=== PATIENT | female | born 1950 | race Caucasian/White ===

== ENCOUNTER 2020-05-24 07:11 | Outpatient (CLI) | payer MEDICARE, SELFPAY ==
[2020-05-24 08:27] LABS: Alanine Aminotransferase 29 U/L (4-35); Alkaline Phosphatase 108 U/L (38-126); Anion Gap 9 mmol/L (8-16); Aspartate Amino Transferase 31 U/L (14-36); Bilirubin,Total 0.7 mg/dL (0.2-1.3); Blood Urea Nitrogen 17 mg/dL (7-17); Calcium 9.1 mg/dL (8.4-10.2); Carbon Dioxide 32 mmol/L (22-30); Chloride 99 mmol/L (98-107); Cholesterol 170 mg/dL (0-200); Estimated Glomerular Filt Rate > 60; Glucose 273 mg/dL (65-105); HDL Direct 41 mg/dL; Potassium 3.8 mmol/L (3.4-5.0); Sodium 140 mmol/L (137-145); Triglycerides 310 mg/dL (<150)
[2020-05-24 08:37] LABS: LDL Cholesterol Direct 71 mg/dL
[2020-05-24 09:01] LABS: Creatinine Urine 53.4 mg/dL
[2020-05-24 09:05] LABS: MALB Creatinine Ratio 90.1 mg/g (0-30); Microalbumin Urine Random 48.1 mg/L (0-16.7)
[2020-05-25 04:13] LABS: Hemoglobin A1C 8.8 % (<5.7)
== END 2020-05-24 07:12 | disposition home or self-care (01) ==
PROVIDERS: PCP Internal Medicine; Visit Provider Nurse Practitioner
DX: E78.5 Hyperlipidemia, unspecified (principal); E11.40 Type 2 diabetes mellitus with diabetic neuropathy, unspecified; E11.65 Type 2 diabetes mellitus with hyperglycemia
CPT/HCPCS: 36415; 80053; 80061; 82043; 83036

== ENCOUNTER 2020-09-28 06:54 | Outpatient (CLI) | payer MEDICARE, SELFPAY ==
[2020-09-28 08:02] LABS: Alanine Aminotransferase 25 U/L (4-35); Albumin Level 4.1 g/dL (3.5-5.1); Alkaline Phosphatase 138 U/L (38-126); Anion Gap 8 mmol/L (8-16); Aspartate Amino Transferase 28 U/L (14-36); Bilirubin,Total 0.6 mg/dL (0.2-1.3); Blood Urea Nitrogen 14 mg/dL (7-17); Calcium 9.5 mg/dL (8.4-10.2); Carbon Dioxide 29 mmol/L (22-30); Chloride 98 mmol/L (98-107); Cholesterol 196 mg/dL (0-200); Estimated Glomerular Filt Rate > 60; Glucose 374 mg/dL (65-105); HDL Direct 49 mg/dL; Potassium 4.3 mmol/L (3.4-5.0); Sodium 135 mmol/L (137-145); Triglycerides 471 mg/dL (<150)
[2020-09-28 08:29] LABS: LDL Cholesterol Direct 67 mg/dL
== END 2020-09-28 06:55 | disposition home or self-care (01) ==
PROVIDERS: PCP Internal Medicine; Visit Provider Internal Medicine
DX: E11.65 Type 2 diabetes mellitus with hyperglycemia (principal); I10 Essential (primary) hypertension; E78.5 Hyperlipidemia, unspecified
CPT/HCPCS: 36415; 80053; 80061; 83036

== ENCOUNTER 2021-01-05 07:43 | Outpatient (CLI) | payer MEDICARE, SELFPAY ==
[2021-01-05 08:33] LABS: Alanine Aminotransferase 20 U/L (4-35); Alkaline Phosphatase 139 U/L (38-126); Anion Gap 6 mmol/L (8-16); Aspartate Amino Transferase 23 U/L (14-36); Bilirubin,Total 0.5 mg/dL (0.2-1.3); Blood Urea Nitrogen 14 mg/dL (7-17); Calcium 9.3 mg/dL (8.4-10.2); Carbon Dioxide 31 mmol/L (22-30); Chloride 100 mmol/L (98-107); Cholesterol 175 mg/dL (0-200); Estimated Glomerular Filt Rate > 60; Glucose 325 mg/dL (65-105); HDL Direct 50 mg/dL; Potassium 3.8 mmol/L (3.4-5.0); Sodium 137 mmol/L (137-145); Triglycerides 300 mg/dL (<150)
[2021-01-05 08:44] LABS: LDL Cholesterol Direct 69 mg/dL
[2021-01-05 08:48] LABS: Hemoglobin A1C 10.3 % (<5.7)
[2021-01-05 09:10] LABS: Creatinine Urine 42.1 mg/dL
[2021-01-05 09:14] LABS: Microalbumin Urine Random 29.9 mg/L (0-16.7)
== END 2021-01-05 07:44 | disposition home or self-care (01) ==
PROVIDERS: PCP Internal Medicine; Visit Provider Nurse Practitioner
DX: E11.65 Type 2 diabetes mellitus with hyperglycemia (principal); E78.5 Hyperlipidemia, unspecified
CPT/HCPCS: 36415; 80053; 80061; 82043; 83036

== ENCOUNTER 2021-01-12 08:10 | Outpatient (CLI) | payer MEDICARE, SELFPAY ==
[2021-01-12 13:53] LABS: Iron 40 ug/dL (37-170)
[2021-01-12 14:33] LABS: Percent Iron Saturation 11 % (20-50)
[2021-01-12 14:36] LABS: Ferritin 9.46 ng/mL (11.1-264)
== END 2021-01-12 08:11 | disposition home or self-care (01) ==
PROVIDERS: Nurse Practitioner; PCP Internal Medicine; Visit Provider Internal Medicine
DX: D50.9 Iron deficiency anemia, unspecified (principal)
CPT/HCPCS: 36415; 82728; 83540; 83550

== ENCOUNTER 2021-07-19 08:21 | Outpatient (CLI) | payer MEDICARE, SELFPAY ==
[2021-07-19 09:09] LABS: Alanine Aminotransferase 23 U/L (4-35); Albumin Level 4.2 g/dL (3.5-5.1); Alkaline Phosphatase 101 U/L (38-126); Anion Gap 10 mmol/L (8-16); Aspartate Amino Transferase 23 U/L (14-36); Bilirubin,Total 0.7 mg/dL (0.2-1.3); Blood Urea Nitrogen 18 mg/dL (7-17); Calcium 9.8 mg/dL (8.4-10.2); Carbon Dioxide 30 mmol/L (22-30); Chloride 98 mmol/L (98-107); Cholesterol 127 mg/dL (0-200); Estimated Glomerular Filt Rate > 60; Glucose 147 mg/dL (65-110); HDL Direct 35 mg/dL; Potassium 4.1 mmol/L (3.4-5.0); Sodium 138 mmol/L (137-145); Triglycerides 210 mg/dL (<150)
[2021-07-19 09:27] LABS: LDL Cholesterol Direct 51 mg/dL
[2021-07-19 12:15] LABS: Vitamin D 25 Hydroxy 45.1 ng/mL
== END 2021-07-19 08:22 | disposition home or self-care (01) ==
LOC: ANHLAB 08:25
PROVIDERS: PCP Internal Medicine; Visit Provider Internal Medicine
DX: E11.65 Type 2 diabetes mellitus with hyperglycemia (principal); I10 Essential (primary) hypertension; E55.9 Vitamin D deficiency, unspecified; E78.5 Hyperlipidemia, unspecified
CPT/HCPCS: 36415; 80053; 80061; 82306

== ENCOUNTER 2022-01-18 08:17 | Outpatient (CLI) | payer MEDICARE, SELFPAY ==
[2022-01-18 08:45] LABS: Alanine Aminotransferase 25 U/L (6-35); Albumin Level 3.8 g/dL (3.5-5.1); Alkaline Phosphatase 132 U/L (38-126); Anion Gap 3 mmol/L (8-16); Aspartate Amino Transferase 27 U/L (14-36); Bilirubin,Total 0.8 mg/dL (0.2-1.3); Blood Urea Nitrogen 13 mg/dL (7-17); Calcium 8.5 mg/dL (8.4-10.2); Carbon Dioxide 34 mmol/L (22-30); Chloride 99 mmol/L (98-107); Cholesterol 150 mg/dL (0-200); Estimated Glomerular Filt Rate > 60; Glucose 220 mg/dL (65-110); HDL Direct 39 mg/dL; Potassium 3.9 mmol/L (3.4-5.0); Sodium 136 mmol/L (137-145); Triglycerides 193 mg/dL (<150)
[2022-01-18 08:56] LABS: LDL Cholesterol Direct 60 mg/dL
[2022-01-18 09:06] LABS: Iron 68 ug/dL (37-170)
[2022-01-18 09:15] LABS: Percent Iron Saturation 20 % (20-50)
[2022-01-18 09:22] LABS: Vitamin D 25 Hydroxy 29.8 ng/mL
[2022-01-18 09:28] LABS: Hemoglobin A1C 9.7 % (<5.7)
== END 2022-01-18 08:18 | disposition home or self-care (01) ==
LOC: ANHLAB 08:21
PROVIDERS: PCP Internal Medicine; Visit Provider Nurse Practitioner
DX: E11.40 Type 2 diabetes mellitus with diabetic neuropathy, unspecified (principal); E55.9 Vitamin D deficiency, unspecified; E78.5 Hyperlipidemia, unspecified; E61.1 Iron deficiency
CPT/HCPCS: 36415; 80053; 80061; 82306; 83036; 83540; 83550

== ENCOUNTER 2022-07-05 15:07 | Outpatient (CLI) | payer MEDICARE, SELFPAY ==
--- NOTE | ~2022-07-05 | DEXA_ITS ---
Bone Density Report Name: ROHITH JO Age: 71 Sex: Female Ethnicity: White Date of : 1950 Indication: postmenopausal; screening for osteoporosis; Referring Provider: TRINY JOHNSON Study: Bone densitometry was performed. Exam Date: July 05, 2022 Accession number: [id number] Bone Density: Region BMD T-score Z-score Classification AP Spine(L1-L4) 1.112 0.6 2.7 Normal Femoral Neck (Left) 0.743 -1.0 0.9 Normal Total Hip (Left) 0.924 -0.1 1.4 Normal Femoral Neck (Right) 0.735 -1.0 0.8 Normal Total Hip (Right) 0.881 -0.5 1.0 Normal Total Hip Mean 0.903 -0.3 1.2 Normal World Health Organization criteria for BMD impression classify patients as: Normal (T-score at or above -1.0), Osteopenia (T-score between -1.0 and -2.5), or Osteoporosis (T-score at or below -2.5). 10-year Fracture Risk: FRAX not reported because: All T-scores for Spine Total, Hip Total, Femoral Neck at or above -1.0 Clinical Information Provided by Patient: Patient maximum height was 65 Menopause Age: 53 Drinks caffeinated beverages Onset of menses at age 14 Number of children 3 Impression: The patient has normal bone mass. Discussion: BONE DENSITY IS ABOVE THE MINIMUM DESIRABLE LEVEL AT ALL SKELETAL SITES TESTED. This patient?s bone mineral density is above the minimum desirable level (T-score -1.0 or better) at all sites measured. The patient should follow a healthful lifestyle (good nutrition with adequate calcium and vitamin D, and appropriate weight-bearing exercise). Follow-Up: Consider repeating this study in 5 years or sooner if there is some new clinical indication. Reported by: KALI on 07/05/2022 3:46:00 PM. Reviewed, dictated and finalized at location AAddie [facility]
--- NOTE | ~2022-07-05 | MM_ITS ---
EXAMINATION: MM screening [place]ley BI w trevon HISTORY: Screening mammogram TECHNIQUE: Craniocaudal and mediolateral oblique 3-D tomosynthesis images were obtained and synthetic 2-D images were generated. CAD analysis was submitted and interpreted. COMPARISON: No prior mammogram is available for comparison at this institution. BREAST PARENCHYMAL COMPOSITION: There are scattered areas of fibroglandular density. FINDINGS: There are scattered bilateral benign calcifications. There is no evidence of suspicious mas s, calcification, or architectural distortion to suggest malignancy in either breast. There has been no suspicious interval change. IMPRESSION: 1. No mammographic evidence of malignancy. 2. Recommend routine screening mammography in one year. BI-RADS Category 1: Negative Reviewed, dictated and finalized at location A. OPRACTIC DOCTOR
== END 2022-07-05 15:08 | disposition home or self-care (01) ==
PROVIDERS: PCP Internal Medicine; Visit Provider Nurse Practitioner
DX: Z12.31 Encounter for screening mammogram for malignant neoplasm of breast (principal); Z78.0 Asymptomatic menopausal state
CPT/HCPCS: 77063; 77067; 77080

== ENCOUNTER 2022-08-21 09:57 | Outpatient (CLI) | payer MEDICARE, SELFPAY ==
[2022-08-21 10:36] LABS: Basophils Percent Auto 0.5 % (0.2-1.2); Eosinophils Absolute Auto 0.1 K/mm3 (0-0.3); Eosinophils Percent Auto 1.8 % (0-4.4); Hematocrit 40.7 % (37.0-47.0); Hemoglobin 14.2 g/dL (12.0-15.0); Immature Granulocyte Absolute 0.02 K/mm3 (0.00-0.031); Immature Granulocyte Percent A 0.4 % (0-0.5); Lymphocytes Absolute Auto 1.34 K/mm3 (0.9-3.2); Lymphocytes Percent Auto 24.2 % (18.3-44.2); Mean Corpuscular HGB Conc 34.9 g/dl (32-36); Mean Corpuscular Hemoglobin 30.9 pg (26-34); Mean Corpuscular Volume 88.7 fl (80-100); Mean Platelet Volume 10.6 fl (7.4-10.4); Monocytes Absolute Auto 0.4 K/mm3 (0.1-0.6); Monocytes Percent Auto 6.3 % (2.6-8.5); Neutrophils Absolute Auto 3.7 K/mm3 (1.3-6.7); Neutrophils Percent Auto 66.8 % (45.5-73.1); Platelet Count Result 238 k/mm3 (150-375); Red Blood Count 4.59 M/mm3 (4.2-5.4); Red Cell Distribution Width 11.9 % (11.5-14.5); White Blood Count 5.5 K/mm3 (4.5-10.0)
[2022-08-21 10:39] LABS: Alanine Aminotransferase 33 U/L (6-35); Alkaline Phosphatase 128 U/L (38-126); Anion Gap 7 mmol/L (8-16); Aspartate Amino Transferase 29 U/L (14-36); Bilirubin,Total 0.8 mg/dL (0.2-1.3); Blood Urea Nitrogen 13 mg/dL (7-17); Calcium 8.9 mg/dL (8.4-10.2); Carbon Dioxide 32 mmol/L (22-30); Chloride 97 mmol/L (98-107); Cholesterol 144 mg/dL (0-200); Estimated Glomerular Filt Rate > 60; Glucose 296 mg/dL (65-110); HDL Direct 31 mg/dL; Potassium 3.3 mmol/L (3.4-5.0); Sodium 136 mmol/L (137-145); Triglycerides 284 mg/dL (<150)
[2022-08-21 10:40] LABS: Hemoglobin A1C 10.4 % (<5.7)
[2022-08-21 10:50] LABS: LDL Cholesterol Direct 60 mg/dL
[2022-08-21 11:02] LABS: Microalbumin Urine Random 116.4 mg/L (0-16.7)
[2022-08-21 11:06] LABS: Iron 71 ug/dL (37-170)
[2022-08-21 11:13] LABS: Percent Iron Saturation 23 % (20-50); Vitamin D 25 Hydroxy 31.4 ng/mL
[2022-08-21 11:14] LABS: Creatinine Urine 423.1 mg/dL; MALB Creatinine Ratio 27.5 mg/g (0-30)
== END 2022-08-21 09:58 | disposition home or self-care (01) ==
LOC: ANHLAB 10:05
PROVIDERS: PCP Internal Medicine; Visit Provider Nurse Practitioner
DX: E61.1 Iron deficiency (principal); E55.9 Vitamin D deficiency, unspecified; E11.65 Type 2 diabetes mellitus with hyperglycemia; E78.5 Hyperlipidemia, unspecified
CPT/HCPCS: 36415; 80053; 80061; 82043; 82306; 83036; 83540; 83550; 85025

== ENCOUNTER 2022-12-18 07:03 | Outpatient (CLI) | payer MEDICARE, SELFPAY ==
[2022-12-18 07:52] LABS: Anion Gap 1 mmol/L (8-16); Blood Urea Nitrogen 7 mg/dL (7-17); Calcium 8.4 mg/dL (8.4-10.2); Carbon Dioxide 33 mmol/L (22-30); Chloride 105 mmol/L (98-107); Estimated Glomerular Filt Rate > 60; Glucose 210 mg/dL (65-110); Sodium 139 mmol/L (137-145)
== END 2022-12-18 07:04 | disposition home or self-care (01) ==
LOC: ANHLAB 07:05
PROVIDERS: PCP Family Medicine; Visit Provider Nurse Practitioner Family
DX: E87.6 Hypokalemia (principal); I10 Essential (primary) hypertension
CPT/HCPCS: 36415; 80048

== ENCOUNTER 2023-07-03 07:53 | Outpatient (CLI) | payer MEDICARE, SELFPAY ==
[2023-07-03 09:14] LABS: Basophils Percent Auto 0.6 % (0.2-1.2); Eosinophils Absolute Auto 0.1 K/mm3 (0-0.3); Eosinophils Percent Auto 1.2 % (0-4.4); Hematocrit 44.6 % (37.0-47.0); Hemoglobin 14.9 g/dL (12.0-15.0); Immature Granulocyte Absolute 0.04 K/mm3 (0.00-0.031); Immature Granulocyte Percent A 0.6 % (0-0.5); Lymphocytes Absolute Auto 0.84 K/mm3 (0.9-3.2); Lymphocytes Percent Auto 12.4 % (18.3-44.2); Mean Corpuscular HGB Conc 33.4 g/dl (32-36); Mean Corpuscular Hemoglobin 29.6 pg (26-34); Mean Corpuscular Volume 88.7 fl (80-100); Mean Platelet Volume 10.9 fl (7.4-10.4); Monocytes Absolute Auto 0.3 K/mm3 (0.1-0.6); Neutrophils Absolute Auto 5.5 K/mm3 (1.3-6.7); Neutrophils Percent Auto 80.2 % (45.5-73.1); Platelet Count Result 239 k/mm3 (150-375); Red Blood Count 5.03 M/mm3 (4.2-5.4); Red Cell Distribution Width 12.3 % (11.5-14.5); White Blood Count 6.8 K/mm3 (4.5-10.0)
[2023-07-03 09:29] LABS: Alanine Aminotransferase 26 U/L (6-35); Albumin Level 4.1 g/dL (3.5-5.1); Alkaline Phosphatase 156 U/L (38-126); Anion Gap 6 mmol/L (8-16); Aspartate Amino Transferase 22 U/L (14-36); Bilirubin,Total 0.9 mg/dL (0.2-1.3); Blood Urea Nitrogen 12 mg/dL (7-17); Calcium 9.2 mg/dL (8.4-10.2); Carbon Dioxide 28 mmol/L (22-30); Chloride 104 mmol/L (98-107); Cholesterol 182 mg/dL (0-200); Estimated Glomerular Filt Rate > 60; Glucose 278 mg/dL (65-110); HDL Direct 46 mg/dL; Potassium 3.4 mmol/L (3.4-5.0); Sodium 138 mmol/L (137-145); Triglycerides 192 mg/dL (<150)
[2023-07-03 09:40] LABS: LDL Cholesterol Direct 94 mg/dL
[2023-07-03 09:55] LABS: Vitamin D 25 Hydroxy 25.6 ng/mL
[2023-07-03 15:17] LABS: Iron 97 ug/dL (37-170)
[2023-07-03 15:27] LABS: Percent Iron Saturation 29 % (20-50)
== END 2023-07-03 07:54 | disposition home or self-care (01) ==
PROVIDERS: PCP Nurse Practitioner Family; Visit Provider Nurse Practitioner Family
DX: E61.1 Iron deficiency (principal); I10 Essential (primary) hypertension; E78.5 Hyperlipidemia, unspecified; E55.9 Vitamin D deficiency, unspecified
CPT/HCPCS: 36415; 80053; 80061; 82306; 83540; 83550; 85025

== ENCOUNTER 2023-11-20 08:58 | Outpatient (CLI) | payer MEDICARE, SELFPAY ==
--- NOTE | ~2023-11-20 | MM_ITS ---
EXAMINATION: MM screening hadley BI w trevon HISTORY: Screening mammogram TECHNIQUE: Craniocaudal and mediolateral oblique 3-D tomosynthesis images were obtained and synthetic 2-D images were generated. CAD analysis was submitted and interpreted. COMPARISON: 07/15/2022 bilateral screening mammogram BREAST PARENCHYMAL COMPOSITION: There are scattered areas of fibroglandular density. FINDINGS: There is no evidence of suspicious mass, calcification, or architectural distortion to sugg est malignancy in either breast. There has been no suspicious interval change. IMPRESSION: 1. No mammographic evidence of malignancy. 2. Recommend routine screening mammography in one year. BI-RADS Category 1: Negative Reviewed, dictated and finalized at location A.
== END 2023-11-20 08:59 | disposition home or self-care (01) ==
PROVIDERS: PCP Nurse Practitioner Family; Visit Provider Nurse Practitioner Family
DX: Z12.31 Encounter for screening mammogram for malignant neoplasm of breast (principal)
CPT/HCPCS: 77063; 77067

== ENCOUNTER 2024-08-05 13:12 | Outpatient (RCR) | payer MEDICARE, SELFPAY | END 2024-10-27 08:59 | disposition home or self-care (01) | LOC: ANHDMC 13:12 | PROVIDERS: PCP Internal Medicine; Visit Provider Nurse Practitioner Family | DX: E11.65 Type 2 diabetes mellitus with hyperglycemia (principal); Z71.89 Other specified counseling | CPT/HCPCS: G0108 ==

== ENCOUNTER 2024-11-05 09:12 | Outpatient (CLI) | payer MEDICARE, SELFPAY ==
--- NOTE | ~2024-11-05 | US_ITS ---
EXAMINATION: US arterial ankle brachial ind DATE: 11/05/2024 09:50 INDICATION: Peripheral vascular disease, unspecified. TECHNIQUE: Segmental pressures and plethysmographic and Doppler waveforms of the brachial and lower e xtremity arteries were obtained. COMPARISON: None. FINDINGS: Right and left brachial artery pressures of 162 mm Hg and 172 mm Hg, respectively, are concordant (no rmal difference <= 30 mmHg). The right ankle-brachial index (MITALI) could not be measured due to inability to cuff occlude the arter ies (normal >= 0.9-1.0). The right great toe-brachial index (TBI) is 0.41 (normal >= 0.65). Arterial Doppler waveforms are biphasic at the ankle. The left MITALI could not be measured due to inability to cuff occlude the arteries. The left TBI is 0.4 4. Arterial Doppler waveforms are biphasic at the ankle. IMPRESSION: 1. Decreased TBIs and nondiagnostic ABIs, consistent with arterial occlusive disease. Reviewed, dictated and finalized at location B. IMPRESSION: 1. Decreased TBIs and nondiagnostic ABIs, consistent with arterial occlusive di sease.
--- OUTSIDE RECORDS SUMMARY | 2024-11-05 09:51 | XMS_ITS | Clinical Summary ---
Author Organization [facility] Address [address] [place] [address] Care Team Providers Care Turbine Mechanic Name Role Phone Unavailable Primary Care Provider Unavailabl e Social History Tobacco Use Types Packs/Day Years Used Date Smoking Tobacco: Never Assessed Comments Unknown Sex and Gender Information Value Date Recorded Sex Assigned at Not on file Legal Sex Female 8:05 PM CDT Gender Identity Not on file Sexual Orientation Not on file Plan of Treatment Health Maintenance Due Date Last Done Comments Colorectal Cancer Screening Colonoscopy (10 Years) 1950 Hepatitis C 10/24/1969 DTaP, Tdap and Td Vaccines ( 1 - Tdap) 10/24/1970 Mammogram Screening 1991 Zoster Vaccines (1 of 2) 10/24/2001 Dexa Scan (General) 10/24/2016 Pneumococcal Vaccine: 65+ Ye ars (1 of 1 - PCV) 10/24/2016 COVID-19 Vaccine (2023-2 5 season) 2024 Influenza Adult (#1) 2024 RSV Immunization or 60+ Years (1 - 1-dose 75+ series) 10/24/2026 Meningococcal B Vaccine Aged Out No l onger eligible based on patient's age to complete this topic Meningococcal Vaccine Aged Out No adeel hank eligible based on patient's age to complete this topic RSV Immunizations Under 20 Months Aged Out No longer eligible based on patient's age to complete this topic
--- OUTSIDE RECORDS SUMMARY | 2024-11-05 09:51 | XMS_ITS | CONTINUITY OF CARE DOCUMENT ---
Author Name andreia boswell Address Unknown Organization [facility] Address [address] [facility] [facility] [address] [place] [address] Phone [phone] Care Team Providers Care Mass Spectrometry Specialist Name Role Phone Armani REYES, Dotty Unavailable JACQUIE GALAN MD Unavailable [phone] INSURANCE PROVIDERS Payer name Policy type / Coverage type Allan red libertarian ID [facility] Other [id number]
== END 2024-11-05 09:13 | disposition home or self-care (01) ==
PROVIDERS: PCP Internal Medicine; Visit Provider Nurse Practitioner Family
DX: I73.9 Peripheral vascular disease, unspecified (principal)
CPT/HCPCS: 93922

== ENCOUNTER 2024-12-02 09:06 | Outpatient (CLI) | payer MEDICARE, SELFPAY ==
--- OUTSIDE RECORDS SUMMARY | 2024-12-02 09:45 | XMS_ITS | Clinical Summary ---
Author Organization [facility] Address [address] [place] [address] Care Team Providers Care Certified Master Locksmith Name Role Phone Unavailable Primary Care Provider [...] of 1 - PCV) 10/24/2016 COVID-19 Vaccine ( - 2023-2 5 season) 2024 RSV Immunization or 60+ Years (1 [...]
--- OUTSIDE RECORDS SUMMARY | 2024-12-02 09:45 | XMS_ITS | Referral Summary ---
Author Organization [facility] [address] Address [address] [place] [address] Care Team Providers Care Wire Tinner Name Role Phone BillieVidaldave SMITH Primary Care Provider [phone] Encounters Date Type Department Care Team Description 11/19/2024 9:45 AM CDT Office Visit [facility] at [address] [place] [address] Saleem Osborn MD Peripheral vascular disease, unspecified (Primary Dx); Mixed hyperlipidemia; Primary hypertension from Last 3 Months Allergies Active Allergy Reactions Criticality Noted Date Comments Hydrocodone Swelling,Vomiting Medium 11/19/2024 Medications HumaLOG 200 unit/mL (3 mL) pen for injection PLEASE SEE ATTACHED FOR DETAILED DIRECTIONS 5 Active TRESIBA 200 unit/mL (3 mL) pen for injection INJECT 45 UNIT SUBCUTANEOUSLY DAILY 5 Active amLODIPine (NORVASC) 10 mg tablet Take 1 tablet (10 mg total) by mouth daily 5 Active lisinopriL (PRINIVIL,ZEST RIL) 20 mg tablet Take 1 tablet (20 mg total) by mouth daily 5 Active atorvastatin (LIPITOR) 40 mg tablet Take 1 tablet (40 mg total) by mouth daily [address] (PROTONIX) 40 mg EC tablet Take 1 tablet (40 mg total) by mouth every morning 5 Active metoprolol (LOPRESSOR) 100 mg tablet Take 1 tablet (100 mg total) by mouth every 12 (twelve) hours 5 Active gabapentin (NEURONTIN) 100 mg capsule TAKE 1 CAPSULE BY MOUTH EVERYDAY AT BEDTIME 5 Active amoxicillin 500 mg capsule TAKE 1 CAPSULE BY MOUTH FOUR TIMES A DAY UNTIL FINISHED 5 Active metFORMIN XR (GLUCOPHAGE XR) 500 mg 24 hr tablet Take 2 tablets (1,000 mg total) by mouth 2 (two) times a day 5 Active Active Problems Problem Noted Date Diagnosed Date Peripheral vascular disease, unspecified 025 Assessment & Plan (11/19/2024 10:53 AM CDT): Clinically no evidence of PVD as she has a palpable left DP PT pulse right DP PT signal. MITALI testing from [facility] ABIs falsely elevated due to noncompressibility of vessels, likely has some inframalleolar or digit disease due to her diabetes. Symptoms likely due to neuropathy and and are issues that are musculoskeletal in origin. Can follow up with me as needed. 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 Gender Identity Not on file Sexual Orientation Not on file Last Filed Vital Signs Vital Sign Reading Time Taken Comments Blood Pressure 153/77 11/19/2024 10:07 AM CDT Pulse 59 11/19/2024 10:07 AM CDT Temperature - - Respiratory Rate - - Oxygen Saturation 99% 11/19/2024 10:07 AM CDT Inhaled Oxygen Concentration - - Weight 88.5 kg (195 lb) 11/19/2024 10:07 AM CDT Height 165.1 cm (5' 5 ) 11/19/2024 10:07 AM CDT Body Mass Index 32.45 11/19/2024 10:07 AM CDT Plan of Treatment Not on file Insurance HU[employer]NA MEDICARE HMO Care Teams Wire Tinner Relationship Specialty Start Date End Date Ed Wise DO [address] [id number] PCP - General Internal Medicine 11/10/24
--- OUTSIDE RECORDS SUMMARY | 2024-12-02 09:45 | XMS_ITS | CONTINUITY OF CARE DOCUMENT ---
Author Name andreia boswell Address Unknown Organization [facility] Address [address] [facility] [address] [place] [address] Phone [phone] Care Team Providers Care Boat Crew Deck Hand Name Role Phone Armani REYES, Dotty Unavailable JACQUIE GALAN MD Unavailable [phone] INSURANCE PROVIDERS Payer name Policy type / Coverage type Allan red republican ID [facility] Other [id number]
--- OUTSIDE RECORDS SUMMARY | 2024-12-02 09:45 | XMS_ITS | Clinical Summary ---
Author Organization [facility] [address] Address [address] [place] [phone] Care Team Providers Care Melt Superintendant Name Role Phone Ed Wise Primary Care Provider [phone] Allergies Active Allergy Reactions Criticality Noted Date [...] by mouth 2 (two) times a day Active Active Problems Problem Noted Date Diagnosed Date Peripheral vascular disease, unspecified 025 Assessment & Plan (11/19/2024 10:53 AM CDT): Clinically no evidence of PVD as she has a palpable left DP PT pulse right DP PT signal. MITALI testing from [facility] ABIs falsely elevated due to noncompressibility [...] (11/19/2024 10:53 AM CDT): Stable continue Lipitor Encounters Date Type Department Care Team Description 11/19/2024 9:45 AM CDT Office Visit [facility] at [address] [place] [phone] Saleem Osborn MD Peripheral vascular disease, unspecified (Primary Dx); Mixed hyperlipidemia; Primary hypertension from Last 3 Months Social History Tobacco Use Types Packs/Day Years Used Date Smoking Tobacco: Unknown Tobacco Cessation:Counseling Given: Not Answered Comments Unknown Sex and Gender Information Value Date Recorded Sex Assigned at Not on file 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 Gender Identity Not on file Sexual Orientation Not on file Obstetrics History Last Filed Vital Signs Vital Sign Reading [...] 11/19/2024 10:07 AM CDT Plan of Treatment Health Maintenance Due Date Last Done Comments Breast Cancer Screening-Mammogram 1950 Colon Cancer Screening-Colonoscopy 1950 Depression Screening 1950 Fall Risk Assessment 1950 Hepatitis C Screening 1950 Osteoporosis Screening-Bone Density Scan 1950 DTaP/Tdap/Td Vaccine (1 - Tdap) 10/24/1962 Hepatitis B Screening 10/24/1969 Zoster Vaccine (1 of 2) 10/24/2001 Well Visit 65+ 10/24/2016 Pneumococcal vaccine 65+ (2 of 2 - PPSV23) 05/27/2021 05/27/2020 Covid-19 Vaccine (8 2023-2 5 season) 2024 05/28/2024, 05/14/2023, 05/16/2022, Additional history exists Influenza Vaccine Completed 05/28/2024, , 05/16/2022, Additional history exists Insurance Care Teams Melt Superintendant Relationship Specialty Start Date End Date Ed Wise DO [address] [facility] [address] [place] [id number] PCP - General Internal Medicine 11/10/24
--- NOTE | 2024-12-02 10:00 | NEURO_ITS ---
Impression: #Known diabetic Complains of paresthesia of left lower extremity. ? 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 ? # Needle/EMG exam with neurogenic changes in lower extremity muscles, left more than right. ? # Clinical correlation recommended. Nerve Conduction Studies Anti Sensory Summary Table ?Stim Site NR Peak (ms) P-T Amp (?V) Site1 Site2 Delta-P (ms) Dist (cm) Jose Alberto (m/s) Left Sup Fibular Anti Sensory (Ant Lat Mall)??? NO RESPONSE 14 cm NR 14 cm Ant Lat Mall 16.0 Right Sup Fibular Anti Sensory (Ant Lat Mall)??? NO RESPONSE 14 cm NR 14 cm Ant Lat Mall 16.0 Left Sural Anti Sensory (Lat Mall)??? NO RESPONSE Calf NR Calf Lat Mall 16.0 Right Sural Anti Sensory (Lat Mall)??? NO RESPONSE Calf NR Calf Lat Mall 16.0 Motor Summary Table ?Stim Site NR Onset (ms) O-P Amp (mV) Site1 Site2 Delta-0 (ms) Dist (cm) Jose Alberto (m/s) Left Peroneal Motor (Vastus Med) Ankle ? 4.9 1.6 Popit Ankle 10.1 40.0 40 Popit ? 15.0 1.3 Right Peroneal Motor (Vastus Med) Ankle ? 4.2 2.3 Popit Ankle 9.9 42.0 42 Popit ? 14.1 2.2 Left Tibial Motor (Abd Alaniz Brev) Ankle ? 4.8 1.2 Knee Ankle 10.4 41.0 39 Knee ? 15.2 1.1 Right Tibial Motor (Abd Alaniz Brev) Ankle ? 4.6 2.2 Knee Ankle 9.9 41.0 41 Knee ? 14.5 1.8 F Wave Studies ?NR F-Lat (ms) L-R F-Lat (ms) Left Peroneal (Mrkrs) (EDB)??? DISPERSED RESPONSE NR Right Peroneal (Mrkrs) (EDB) ? 55.31 Left Tibial (Mrkrs) (Abd Hallucis) ? 55.65 2.54 Right Tibial (Mrkrs) (Abd Hallucis) ? 53.11 2.54 EMG ?Side Muscle Nerve Root Ins Act Fibs Amp Dur Recrt Comment Right AntTibialis Dp Br Fibular L4-5 Nml Nml Nml Nml Nml Right Gastroc Tibial S1-2 Nml Nml Nml Nml Nml Right Fibularis Long Sup Br Fibular L5-S1 Nml Nml Nml Nml Nml Right Flex Dig Long Tibial L5-S2 Nml Nml Nml Nml Nml Right Ext Dig Brev Dp Br Fibular L5, S1 Nml Nml Nml Nml +1 Right QuadratusFem QuadFemoris L4-5, S1 Nml Nml Nml Nml Nml Left AntTibialis Dp Br Fibular L4-5 Nml Nml Nml Nml +1 Left Gastroc Tibial S1-2 Nml Nml Nml Nml +1 Left Fibularis Long Sup Br Fibular L5-S1 Nml Nml Nml Nml +1 Left Flex Dig Long Tibial L5-S2 Nml Nml Nml Nml +1 Left Ext Dig Brev Dp Br Fibular L5, S1 Nml Nml Nml Nml +1 Left QuadratusFem QuadFemoris L4-5, S1 Nml Nml Nml Nml +1 MTDD
== END 2024-12-02 09:07 | disposition home or self-care (01) ==
PROVIDERS: PCP Internal Medicine; Visit Provider Internal Medicine
DX: R20.2 Paresthesia of skin (principal)
CPT/HCPCS: 95886; 95910

== ENCOUNTER 2024-12-19 08:04 | Outpatient (CLI) | payer MEDICARE, SELFPAY ==
--- NOTE | ~2024-12-19 | MM_ITS ---
EXAMINATION: MM screening hadley BI w trevon HISTORY: Screening TECHNIQUE: Craniocaudal and mediolateral oblique 3-D tomosynthesis images were obtained and synthetic 2-D images were generated. CAD analysis was submitted and interpreted. COMPARISON: Comparison to multiple prior studies sequentially, with oldest reviewed study dated 11/19. BREAST PARENCHYMAL COMPOSITION: Not dense: There are scattered areas of fibroglandular density. FINDINGS: There is no evidence of suspicious mass, calcification, or architectural distortion to sugg est malignancy in either breast. There has been no suspicious interval change. IMPRESSION: 1. No mammographic evidence of malignancy. 2. Recommend routine screening mammography in one year. BI-RADS Category 1: Negative Reviewed, dictated and finalized at location A.
--- OUTSIDE RECORDS SUMMARY | 2024-12-19 08:09 | XMS_ITS | Clinical Summary ---
Author Organization [facility] [address] Address [address] [place] [address] Care Team Providers Care Certified Substance Abuse Counselor Name Role Phone Ed Wise Primary Care Provider [phone] Allergies Active Allergy Reactions Criticality Noted Date [...] right DP PT signal. MITALI testing from [facility] ABIs falsely elevated due to noncompressibility of [...] Description 11/19/2024 9:45 AM CDT Office Visit [facility] at [address] [place] [phone] Saleem Osborn MD Peripheral vascular disease, unspecified (Primary Dx); Mixed hyperlipidemia; Primary hypertension from Last 3 Months Social History Tobacco Use Types Packs/Day Years Used Date Smoking Tobacco: Unknown Tobacco Cessation:Counseling Given: Not Answered Comments Unknown Sex and Gender Information Value Date Recorded Sex Assigned at Not on file 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
--- OUTSIDE RECORDS SUMMARY | 2024-12-19 08:09 | XMS_ITS | Clinical Summary ---
Author Organization [facility] Address [address] [place] [address] Care Team Providers Care Gas Jockey Name Role Phone Unavailable Primary Care Provider [...] 1 - Tdap) 10/24/1970 Mammogram Screening 1991 Pneumococcal Vaccine: 50+ Ye ars (1 of 1 - PCV) 10/24/2001 Zoster Vaccines (1 of 2) 10/24/2001 Dexa Scan (General) 10/24/2016 COVID-19 Vaccine ( - 2023-2 5 [...]
--- OUTSIDE RECORDS SUMMARY | 2024-12-19 08:09 | XMS_ITS | CONTINUITY OF CARE DOCUMENT ---
Author Name andreia boswell Address Unknown Organization [facility] Address [address] [address] [place] [address] Phone [phone] Care Team Providers Care Buffing Turner And Counter Name Role Phone Armani REYES, Dotty Unavailable [phone] JACQUIE GALAN MD Unavailable [phone] INSURANCE PROVIDERS Payer name Policy type / Coverage type Allan red democrat ID [facility] Other [id number]
--- OUTSIDE RECORDS SUMMARY | 2024-12-19 08:09 | XMS_ITS | Referral Summary ---
Author Organization [facility] [address] Address [address] [place] [phone] Care Team Providers Care Certification Engineer Name Role Phone BillieVidaldave SMITH Primary Care Provider [phone] Encounters Date Type Department Care Team Description 11/19/2024 9:45 AM CDT Office Visit [facility] V[facility] at [address] [place] [address] Saleem Osborn MD Peripheral vascular [...] right DP PT signal. 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
== END 2024-12-19 08:05 | disposition home or self-care (01) ==
LOC: ANHIMG 08:06
PROVIDERS: PCP Internal Medicine; Visit Provider Internal Medicine
DX: Z12.31 Encounter for screening mammogram for malignant neoplasm of breast (principal)
CPT/HCPCS: 77063; 77067

== ENCOUNTER 2025-01-02 09:40 | Outpatient (CLI) | payer MEDICARE, SELFPAY ==
--- NOTE | ~2025-01-02 | XR_ITS ---
AP and lateral views of the left femur Clinical History: Pain Findings: No acute fracture or dislocation is seen. Osseous alignment is anatomic. Knee arthroplasty present. Left hip joint intact. Soft tissues are unremarkable. Impression: No acute abnormality. Left knee arthroplasty. Reviewed, dictated and finalized at location . Impression: No acute abnormality. Left knee arthroplasty.
--- NOTE | ~2025-01-02 | XR_ITS ---
AP and lateral views of the left hip Clinical history: Pain Findings: No acute fracture or dislocation is seen. Osseous alignment is anatomic. Left hip joint is intact. Soft tissues are unremarkable. Impression: No significant abnormality is seen. Reviewed, dictated and finalized at location M. Impression: No significant abnormality is seen.
--- NOTE | ~2025-01-02 | XR_ITS ---
Lumbosacral Spine: AP and lateral views Clinical History: Pain Findings: The normal lordotic curve is maintained. No fracture. There is 7 mm anterolisthesis of L4 o samir L5. There is moderate degenerative spurring at L4-L5 and L5-S1. There is advanced facet arthropat hy from L4 through S1. The sacroiliac joints are normally outlined. Impression: Advanced degenerative spondylosis of the lower lumbar spine, with 7 mm anterolisthesis of L4 over L5. Reviewed, dictated and finalized at location M. Impression: Advanced degenerative spondylosis of the lower lumbar spine, with 7 mm anteroli sthesis of L4 over L5.
--- OUTSIDE RECORDS SUMMARY | 2025-01-02 09:46 | XMS_ITS | Referral Summary ---
Author Organization [facility] [place] [address] Address [address] [place] [phone] Care Team Providers Care Filter Press Tender Name Role Phone BillieVidaldave SMITH Primary Care Provider [phone] Encounters Date Type Department Care Team Description 11/19/2024 9:45 AM CDT Office Visit [facility] V[facility] at [address] [place] [address] Saleem Osborn MD Peripheral vascular [...] right DP PT signal. 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
--- OUTSIDE RECORDS SUMMARY | 2025-01-02 09:46 | XMS_ITS | Clinical Summary ---
Author Organization [facility] Address [address] [place] [address] Care Team Providers Care Sumac Tanner Name Role Phone Unavailable Primary Care Provider [...]
--- OUTSIDE RECORDS SUMMARY | 2025-01-02 09:46 | XMS_ITS | Clinical Summary ---
Author Organization [facility] [place] [address] Address [address] [place] [phone] Care Team Providers Care Record Systems Analyst Name Role Phone Ed Wise Primary Care Provider [phone] Allergies Active Allergy Reactions Criticality Noted Date [...] right DP PT signal. MITALI testing from [facility] ABIs falsely elevated due to noncompressibility of [...] Description 11/19/2024 9:45 AM CDT Office Visit [facility] at [address] [place] [address] Saleem Osborn MD Peripheral vascular disease, unspecified (Primary Dx); Mixed hyperlipidemia; Primary hypertension from Last 3 Months Social History Tobacco Use Types Packs/Day Years Used Date Smoking Tobacco: Unknown Tobacco Cessation:Counseling Given: Not Answered Comments Unknown Sex and Gender Information Value Date Recorded Sex Assigned at Not on file 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
--- OUTSIDE RECORDS SUMMARY | 2025-01-02 09:46 | XMS_ITS | CONTINUITY OF CARE DOCUMENT ---
Author Name andreia boswell Address Unknown Organization [facility] Address [address] [address] [place] [address] Phone [phone] Care Team Providers Care Central Processing Tech Name Role Phone Armani REYES, Dotty Unavailable JACQUIE GALAN MD Unavailable [phone] INSURANCE PROVIDERS Payer name Policy type / Coverage type Allan red green party ID [facility] Other [id number]
== END 2025-01-02 09:41 | disposition home or self-care (01) ==
PROVIDERS: PCP Internal Medicine; Visit Provider Internal Medicine
DX: M47.896 Other spondylosis, lumbar region (principal); M25.552 Pain in left hip; M79.662 Pain in left lower leg
CPT/HCPCS: 72100; 73502; 73552

== ENCOUNTER 2025-01-08 07:07 | Outpatient (CLI) | payer MEDICARE, SELFPAY ==
--- OUTSIDE RECORDS SUMMARY | 2025-01-08 07:12 | XMS_ITS | Clinical Summary ---
Author Organization [facility] [address] Address [address] [place] [phone] Care Team Providers Care Dairy Specialist Name Role Phone Ed Wise Primary Care Provider [phone] Allergies Active Allergy Reactions Criticality Noted Date [...] right DP PT signal. MITALI testing from [facility] ABIs falsely elevated due to noncompressibility of [...] Description 11/19/2024 9:45 AM CDT Office Visit 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
--- OUTSIDE RECORDS SUMMARY | 2025-01-08 07:12 | XMS_ITS | Referral Summary ---
Author Organization [facility] [address] Address [address] [place] [phone] Care Team Providers Care Mill Operator Head Name Role Phone BillieEd Primary Care Provider [phone] Encounters Date Type Department Care Team Description 11/19/2024 9:45 AM CDT Office Visit [facility] at [address] [place] [address] Saleem Osborn MD Peripheral vascular [...] right DP PT signal. 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
--- OUTSIDE RECORDS SUMMARY | 2025-01-08 07:12 | XMS_ITS | Clinical Summary ---
Author Organization [facility] Address [address] [place] [id number] Care Team Providers Care Health Service Coordinator Name Role Phone Unavailable Primary Care Provider [...] this topic Meningococcal Vaccine Aged Out No adele hank eligible based on patient's age to complete this topic RSV Immunizations Under 20 Months Aged Out No longer eligible based on patient's age to complete this topic
[2025-01-08 08:19] LABS: Alanine Aminotransferase 27 U/L (6-35); Albumin Level 3.7 g/dL (3.5-5.1); Alkaline Phosphatase 124 U/L (38-126); Anion Gap 5 mmol/L (4-12); Aspartate Amino Transferase 28 U/L (14-36); Bilirubin,Total 0.7 mg/dL (0.2-1.3); Blood Urea Nitrogen 14 mg/dL (7-17); Calcium 8.6 mg/dL (8.4-10.2); Carbon Dioxide 26 mmol/L (22-30); Chloride 108 mmol/L (98-107); Cholesterol 202 mg/dL (0-200); Estimated Glomerular Filt Rate > 60; Glucose 182 mg/dL (65-110); HDL Direct 50 mg/dL; Potassium 3.7 mmol/L (3.4-5.0); Sodium 139 mmol/L (137-145); Triglycerides 211 mg/dL (<150)
[2025-01-08 08:30] LABS: LDL Cholesterol Direct 87 mg/dL
[2025-01-08 09:04] LABS: Creatinine Urine 48.5 mg/dL
[2025-01-08 09:19] LABS: Free T4 Free Thyroxine 1.12 ng/dL (0.78-2.19); Vitamin D 25 Hydroxy 24.5 ng/mL
[2025-01-08 10:42] LABS: MALB Creatinine Ratio 1513.6 mg/g (0-30); Microalbumin Urine Random 734.1 mg/L (0-16.7)
== END 2025-01-08 07:08 | disposition home or self-care (01) ==
LOC: ANHLAB 07:09
PROVIDERS: PCP Internal Medicine; Visit Provider Internal Medicine
DX: E11.65 Type 2 diabetes mellitus with hyperglycemia (principal); E55.9 Vitamin D deficiency, unspecified; E61.1 Iron deficiency; E78.1 Pure hyperglyceridemia; I10 Essential (primary) hypertension
CPT/HCPCS: 36415; 80053; 80061; 82043; 82306; 82607; 84439; 84443

== ENCOUNTER 2025-04-08 09:10 | Outpatient (CLI) | payer MEDICARE, SELFPAY ==
--- OUTSIDE RECORDS SUMMARY | 2025-04-08 09:19 | XMS_ITS | Clinical Summary ---
Author Organization [facility] Address [address] [place] [address] Care Team Providers Care Field Enumerator Name Role Phone Unavailable Primary Care Provider [...]
--- OUTSIDE RECORDS SUMMARY | 2025-04-08 09:19 | XMS_ITS | Clinical Summary ---
Author Organization [facility] [address] Address [address] [place] [phone] Care Team Providers Care River Expedition Guide Name Role Phone Ed Wise Primary Care Provider [phone] Allergies Active Allergy Reactions Criticality Noted Date [...] right DP PT signal. 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 Cadena. [address] [place] [address] MEDICARE HMO Care Teams River Expedition Guide Relationship Specialty Start Date End Date Ed Wise DO [address] [facility] [address] [place] [address] PCP - General Internal Medicine 11/10/24
[2025-04-08 10:21] LABS: Total Protein Urine Random > 600 mg/dL; Ur Ttl Prot Creatinine Ratio > 2.67 mg/mg (0-0.20)
[2025-04-08 10:26] LABS: Albumin Level 4.2 g/dL (3.5-5.1); Anion Gap 5 mmol/L (4-12); Blood Urea Nitrogen 18 mg/dL (7-17); Calcium 9.8 mg/dL (8.4-10.2); Carbon Dioxide 28 mmol/L (22-30); Chloride 106 mmol/L (98-107); Estimated Glomerular Filt Rate > 60; Glucose 174 mg/dL (65-110); Potassium 4.0 mmol/L (3.4-5.0); Sodium 139 mmol/L (137-145)
[2025-04-09 15:09] LABS: Albumin 3.4 g/dL (2.9-4.4); Alpha-1-Globulin 0.3 g/dL (0.0-0.4); Alpha-2-Globulin 1.0 g/dL (0.4-1.0); Gamma Globulin 0.8 g/dL (0.4-1.8)
[2025-04-10 14:08] LABS: Albumin, U 72.8 % (.); Alpha-1-Globulin, U 1.2 % (.); Alpha-2-Globulin, U 5.6 % (.); Beta Globulin, U 13.3 % (.); Gamma Globulin, U 7.1 % (.)
== END 2025-04-08 09:11 | disposition home or self-care (01) ==
PROVIDERS: PCP Internal Medicine; Visit Provider Internal Medicine Nephrology
DX: E11.29 Type 2 diabetes mellitus with other diabetic kidney complication (principal); R80.9 Proteinuria, unspecified; I10 Essential (primary) hypertension
CPT/HCPCS: 36415; 80069; 82570; 84155; 84156; 84165; 84166; 86037; 86160; 86225

== ENCOUNTER 2025-04-10 09:03 | Outpatient (CLI) | payer MEDICARE, SELFPAY ==
--- NOTE | ~2025-04-10 | US_ITS ---
US renal BI 04/10/2025 09:46 Procedure: Realtime transabdominal ultrasound of the kidneys and bladder. Indication: Proteinuria Comparison: No prior studies for comparison. Findings: Renal echotexture is normal bilaterally without hydronephrosis, contour deforming mass or r enal calculus. The right kidney measures 11.3 cm and left kidney measures 11 cm. Bladder within norm al limits. Impression: 1: Unremarkable renal ultrasound. No stones, masses or hydronephrosis. Reviewed, dictated and finalized at location A. Impression: 1: Unremarkable renal ultrasound. No stones, masses or hydronephrosis.
--- OUTSIDE RECORDS SUMMARY | 2025-04-10 09:12 | XMS_ITS | Clinical Summary ---
Author Organization [facility] [address] Address [address] [place] [phone] Care Team Providers Care Insurance Account Specialist Name Role Phone Ed Wise Primary Care Provider [phone] Allergies Active Allergy Reactions Criticality Noted Date [...] right DP PT signal. 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 Cadena. [address] [place] [address] MEDICARE HMO Care Teams Insurance Account Specialist Relationship Specialty Start Date End Date Ed Wise DO [address] [facility] [address] [place] [address] PCP - General Internal Medicine 11/10/24
--- OUTSIDE RECORDS SUMMARY | 2025-04-10 09:12 | XMS_ITS | Clinical Summary ---
Author Organization [facility] Address [address] [place] [id number] Care Team Providers Care Non Destructive Testing Inspector Name Role Phone Unavailable Primary Care Provider [...]
== END 2025-04-10 09:04 | disposition home or self-care (01) ==
PROVIDERS: PCP Internal Medicine; Visit Provider Internal Medicine Nephrology
DX: E11.29 Type 2 diabetes mellitus with other diabetic kidney complication (principal); R80.9 Proteinuria, unspecified; I10 Essential (primary) hypertension
CPT/HCPCS: 76775

== ENCOUNTER 2025-04-20 13:30 | Outpatient (RCR) | payer MEDICARE, SELFPAY ==
--- NOTE | 2025-01-23 12:00 | OPREHPOC ---
Outpatient Therapy Plan of Care This is a Multidisciplinary Plan of Care that may contain components documented by all disciplines (PT, OT, and ST.) PT Problem 1 PT Problem #1 Knowledge Deficit PT Goal 1 Goal / Goal Update 1* independent with HEP 2* pt demonstrate correct posture with sitting and standing, lifting from floor Target Visit 6 PT Problem 2 PT Problem #2 Pain PT Goal 1 Goal / Goal Update 1* pt report pain at worst of 5/10 2* radicular pain into L LE to knee at worst Target Visit 6 PT Problem 3 PT Problem #3 Impaired Strength PT Goal 1 Goal / Goal Update *increase strength of trunk and hips to 4+/5 to improve stability to spine and improve posture Target Visit 6 PT Problem 4 PT Problem #4 Impaired Flexibility PT Goal 1 Goal / Goal Update *increase flexibility to decrease pull on spine and hips: hamstring length with supine SLR to 65' 1* R 2* L anterior hip-quad length with prone knee flexion 3* R 105' 4* L 95' 5 *L piriformis in supine stretch, knee cross midline of body Target Visit 6
--- NOTE | 2025-01-23 12:00 | PTOPEVAL1 ---
Assessment and note entered by Carol Voss, PT Evaluation Information Assessment Status Evaluation ICD-10 Condition Codes (PT) Radiculopathy, lumbar region M54.16 Onset August 2024 Subjective Information gradual increase in pain without injury or trauma; also have neuropathy in legs; had blood flow test and it was normal x ray of L hip was negative; lumbar: advanced degenerative spondylosis, anteriolisthesis L -5; spurring L 4-5-S1 activity: live alone, in apartment, able to do all self care and home tasks; do not use a cane or walker; in summer- likes to swim at the outdoor pool Reported Pain Level Pain Score 0: Self Report Additional Pain Score Comments pain range of 0-8/10; radicular pain intermittent into L LE sharp to L foot; sometimes have pain in R knee but feels like arthritis pain increase pain: more activity, one position too long; sitting 30 minutes & walking/standing at home 60 minutes decrease pain: change positions, over the counter meds/ibuprofen with sleeping and roll over, awaken 2-3 x/night have not been using heat/ice at home, 10-15 minutes at time Assessment PT Clinical Summary Alison has the diagnosis of lumbar radiculopathy. Reports onset about 1 year ago, gradual increase in pain. Radicular pain is intermittent into L LE to foot. X ray lumbar: advanced degenerative spondylosis, with spurring L 4-5-S1 and anteriolisthesis L 4-5. L hip x ray was negative. She lives alone and is independent, with limited walking due to pain. Back Index rating of 50% limitation in activity level. With the evaluation: she tends to sit with rounded trunk and crossed legs & standing with R shoulder and hip with forward rotation and L hip elevated; tightness over R and L hamstring and anterior hip-quad & L piriformis muscles; weakness over trunk and hips; Skilled PT services are indicated for modalities to decrease pain, therapeutic exercises to stretch and strengthen trunk and hips with education for posture and body mechanics, to assist with managing her pain. Plan of Care Interventions Electrical Stimulation,Hot Pack/Cold Pack,Manual Therapy,Mechanical Traction,Neuro Re-education, Patient/Caregiver Education,Therapeutic Activities ,Therapeutic Exercise,Ultrasound,Other Other Interventions taping PT Services Indicated Yes Treatment Frequency and 1x/wk for 6 visits Duration These treatments will address the objective and functional deficits as defined above. The patient will be advanced safely and appropriately in order for the patient to progress towards his/her prior level of function. Additional exercises will be introduced and as well as a comprehensive home exercise program upon discharge, if needed, ?to ensure carryover of functional gains achieved in the clinic. This treatment plan has been reviewed and agreement upon by the patient.
--- NOTE | 2025-02-17 11:05 | PCPTNOTE ---
Cancelled pt has no AC today per front office. AKS
--- NOTE | 2025-03-05 12:02 | OPREHPOC ---
Outpatient Therapy Plan of Care This is a Multidisciplinary Plan of Care that may contain components documented by all disciplines (PT, OT, and ST.) PT Problem 1 PT Problem #1 Knowledge Deficit PT Goal 1 Goal / Goal Update 1* independent with HEP 2* pt demonstrate correct posture with sitting and standing, lifting from floor 03-05-25 progress goals met continue towards goals, to progress education and HEP Target Visit 13 PT Problem 2 PT Problem #2 Pain PT Goal 1 Goal / Goal Update 1* pt report pain at worst of 5/10 2* radicular pain into L LE to knee at worst 03-05-25 progress goals not met: pain 8/10 and into L toes continue towards goals Target Visit 13 PT Problem 3 PT Problem #3 Impaired Strength PT Goal 1 Goal / Goal Update *increase strength of trunk and hips to 4+/5 to improve stability to spine and improve posture 03-05-25 progress goal not met; improved to 4/5 continue towards goal Target Visit 13 PT Problem 4 PT Problem #4 Impaired Flexibility PT Goal 1 Goal / Goal Update *increase flexibility to decrease pull on spine and hips: hamstring length with supine SLR to 65' 1* R 2* L anterior hip-quad length with prone knee flexion 3* R 105' 4* L 95' 5 *L piriformis in supine stretch, knee cross midline of body 03-05-25 progress goals 1,2,5 met continue towards 3 & 4 goals Target Visit 13
--- NOTE | 2025-03-05 12:02 | PTOPPROG ---
Assessment and note entered by Carol Voss, PT Assessment Status Progress ICD-10 Condition Codes (PT) Radiculopathy, lumbar region M54.16 Onset August 2024 Subjective Information not sure if the therapy has helped or not; with walking more at a retreat I had more pain; have been doing the exercises at home as much as I can; want to be active and try to walk more but it hurts; her back does not hurts, it is the hip that is causing the pain and hurting; does not like to take any meds for her pain; does not want any back surgery; PAIN: range in the past week: 3-8/10; radicular pain into L toes intermittent at worst/ and constant L lateral hip, thigh to above knee decrease pain: tylenol or ibuprofen PRN increase pain: up on feet/walking 1 hour; with sleeping- not awakening due to pain Assessment PT Clinical Summary Alison has received 5 PT sessions. With today's assessment: pain rating from 0-8/10 to 3-8/10; continues to have intermittent pain into L LE to toes; reported standing/walking tolerance is the same at 60 minutes and sleeping tolerance improved from awakening 2-3x/night to not awakening from sleep; increase flexibility of R and L hamstring with SLR, L piriformis; anterior hip-quad length is the same bilateral; increase trunk and hip strength; education for HEP, self management of pain and posture/body mechanics. The goals were partially met. Continue PT treatment. Plan of Care Interventions Electrical Stimulation,Hot Pack/Cold Pack,Manual Therapy,Mechanical Traction,Neuro Re-education, Patient/Caregiver Education,Therapeutic Activities ,Therapeutic Exercise,Ultrasound,Other Other Interventions taping PT Services Indicated Yes Treatment Frequency and 1-2x/wk for 8 visits Duration These treatments will address the objective and functional deficits as defined above. The patient will be advanced safely and appropriately in order for the patient to progress towards his/her prior level of function. Additional exercises will be introduced and as well as a comprehensive home exercise program upon discharge, if needed, ?to ensure carryover of functional gains achieved in the clinic. This treatment plan has been reviewed and agreement upon by the patient.
--- NOTE | 2025-04-13 10:44 | PCPTNOTE ---
Pt canceled today due to illness.
--- NOTE | 2025-04-20 14:21 | OPREHPOC ---
Outpatient Therapy Plan of Care This is a Multidisciplinary Plan of Care that may contain components documented by all disciplines (PT, OT, and ST.) PT Problem 1 PT Problem #1 Knowledge Deficit PT Goal 1 Goal / Goal Update 1* independent with HEP 2* pt demonstrate correct posture with sitting and standing, lifting from floor 03-05-25 progress goals met continue towards goals, to progress education and HEP ------- 04-20-25 d/c met goals Target Visit 13 Progress Met PT Problem 2 PT Problem #2 Pain PT Goal 1 Goal / Goal Update 1* pt report pain at worst of 5/10 2* radicular pain into L LE to knee at worst 03-05-25 progress goals not met: pain 8/10 and into L toes continue towards goals ------- 04-20-25 d/c met goals Target Visit 13 Progress Met PT Problem 3 PT Problem #3 Impaired Strength PT Goal 1 Goal / Goal Update *increase strength of trunk and hips to 4+/5 to improve stability to spine and improve posture 03-05-25 progress goal not met; improved to 4/5 continue towards goal ------- 04-20-25 d/c met goals Target Visit 13 Progress Met PT Problem 4 PT Problem #4 Impaired Flexibility PT Goal 1 Goal / Goal Update *increase flexibility to decrease pull on spine and hips: hamstring length with supine SLR to 65' 1* R 2* L anterior hip-quad length with prone knee flexion 3* R 105' 4* L 95' 5 *L piriformis in supine stretch, knee cross midline of body 03-05-25 progress goals 1,2,5 met continue towards 3 & 4 goals ------- 04-20-25 d/c met goals Target Visit 13 Progress Met
--- NOTE | 2025-04-20 14:22 | PTOPDC ---
Assessment and note entered by Carol Voss, PT Assessment Status Discharge ICD-10 Condition Codes (PT) Radiculopathy, lumbar region M54.16 Onset August 2024 Subjective Information doing better-- leg pain is less; want to be able to walk and do more, but only about 45 minutes, then have to sit down; have a cane, but not using it; Reported Pain Level Pain Score Self Report Additional Pain Score Comments pain range in the past week: 0-3/10; into L LE to just below buttock- dull, ache pain increase pain: sitting over 1 hour- depends on the type of chair; walking about 45 minutes; decrease pain: change positions, taking over the counter meds, heat with sleeping, do not wake up from pain Assessment PT Clinical Summary Alison has received 12 PT sessions. With today's assessment: she has improved in all areas: pain range from 0-3/10, with radicular pain into L inferior buttock; self assessment with Back index rating of 26% limitation in activity level; flexibility of hamstring with SLR R 70/L 65'; and anterior hip/quad length with prone knee flexion R 105/L 100'; increase strength of trunk and hips; education for HEP, body mechanics, pain management. The goals were achieved. Discharge PT services. Plan of Care PT Services Indicated No
== END 2025-04-20 15:22 | disposition home or self-care (01) ==
LOC: ANHPT 13:30
PROVIDERS: PCP Internal Medicine; Visit Provider Internal Medicine
DX: M54.16 Radiculopathy, lumbar region (principal)
CPT/HCPCS: 97110; 97140; 97161; 97530

== ENCOUNTER 2025-06-11 14:57 | Outpatient (CLI) | payer MEDICARE, SELFPAY ==
[2025-06-11 15:40] LABS: Albumin Level 4.1 g/dL (3.5-5.1); Anion Gap 8 mmol/L (4-12); Blood Urea Nitrogen 13 mg/dL (7-17); Calcium 9.1 mg/dL (8.4-10.2); Carbon Dioxide 24 mmol/L (22-30); Chloride 103 mmol/L (98-107); Estimated Glomerular Filt Rate > 60; Glucose 282 mg/dL (65-110); Potassium 4.1 mmol/L (3.4-5.0); Sodium 135 mmol/L (137-145)
--- OUTSIDE RECORDS SUMMARY | 2025-06-11 17:06 | XMS_ITS | Clinical Summary ---
Author Organization [facility] Address [address] [place] [address] Care Team Providers Care Film Or Videotape Editor Name Role Phone Unavailable Primary Care Provider [...] COVID-19 Vaccine ( - 2023-2 5 season) 2025 Influenza Adult (#1) 2025 RSV Immunization or 60+ Years (1 - [...]
--- OUTSIDE RECORDS SUMMARY | 2025-06-11 17:06 | XMS_ITS | Clinical Summary ---
Author Organization [facility] [address] Address [address] [place] [phone] Care Team Providers Care Fuel Pilot Engineer Name Role Phone Ed Wise Primary Care Provider [phone] Allergies Active Allergy Reactions Criticality Noted Date [...] right DP PT signal. 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 Cadena. [address] [place] [address] MEDICARE HMO Care Teams Fuel Pilot Engineer Relationship Specialty Start Date End Date Ed Wise DO PCP - General Internal Medicine 11/10/24
[2025-06-11 17:37] LABS: Total Protein Urine Random 77 mg/dL; Ur Ttl Prot Creatinine Ratio 1.69 mg/mg (0-0.20)
== END 2025-06-11 14:58 | disposition home or self-care (01) ==
LOC: ANHLAB 14:58
PROVIDERS: PCP Internal Medicine; Visit Provider Internal Medicine Nephrology
DX: R80.9 Proteinuria, unspecified (principal); E11.29 Type 2 diabetes mellitus with other diabetic kidney complication
CPT/HCPCS: 36415; 80069; 82570; 84156

== ENCOUNTER 2025-07-09 13:00 | Outpatient (RCR) | payer MEDICARE, SELFPAY | END 2025-07-27 10:48 | disposition home or self-care (01) | LOC: ANHDMC 13:00 | PROVIDERS: PCP Internal Medicine; Visit Provider Nurse Practitioner Family | DX: E11.65 Type 2 diabetes mellitus with hyperglycemia (principal); Z79.4 Long term (current) use of insulin; Z71.89 Other specified counseling; Z71.3 Dietary counseling and surveillance | CPT/HCPCS: G0108 ==